=== PATIENT | female | born 1995 | race Caucasian/White ===

== ENCOUNTER 2018-01-16 07:39 | Day surgery (SDC) | payer SELFPAY ==
[~2018-01-16] VITALS: Ht 167.6 cm; Wt 71.8 kg
[2018-01-16 08:22] VITALS: BP 135/70; PULSE 122; TEMP 98.1
[2018-01-16] MEDS ORDERED: [UNRECOGNIZED DRUG - OTHER] PO (08:28)
[2018-01-16 10:30] VITALS: BP 110/66; PULSE 99; TEMP 98.1
[2018-01-16] MEDS ORDERED: NORCO 325 MG-51 TAB PO (10:42)
[2018-01-16 10:45] VITALS: BP 113/72; PULSE 97; TEMP 99.2
[2018-01-16 11:00] VITALS: BP 113/72; PULSE 91
[2018-01-16 11:15] VITALS: BP 107/56; PULSE 89
== END 2018-01-16 13:05 | disposition home or self-care (01) ==
LOC: SDCO 07:39
DX: K80.10 Calculus of gallbladder with chronic cholecystitis without obstruction (principal)
CPT/HCPCS: J0690; J1100; J1885; J2405; J2704; J3010; J7120; Q9967

== ENCOUNTER 2018-05-17 17:24 | Emergency (ER) | payer MEDICAID ==
[~2018-05-17 17:24] MED LIST: NORCO 325 MG-51 TAB PO; [UNRECOGNIZED DRUG - OTHER] PO
[2018-05-17 17:29] VITALS: TEMP 97.6
[2018-05-17 18:20] LABS: BASO # 0.1 (0.0-0.2); BASO % 0.3 % (0.0-2.0); EOS # 0.1 (0.0-0.7); EOS % 0.3 % (0-4.0); GRAN # 13.9 (1.4-6.5); GRAN % 80.3 % (42.2-75.2); HEMATOCRIT 37.2 % (35.0-45.0); HEMOGLOBIN 12.6 g/dl (12.0-15.0); LYMPH # 2.5 (1.2-3.4); LYMPH % 14.5 % (20.0-51.0); MEAN CELL VOLUME 87 fl (80.0-95.0); MEAN CORPUSCULAR HEMOGLOBIN 29 pg (26.0-32.0); MEAN CORPUSCULAR HGB CONC 34 g/dl (33.0-37.0); MEAN PLATELET VOLUME 9.8 fl (7.4-10.4); MONO # 0.7 (0.1-0.6); MONO % 4.1 % (1.7-9.3); PLATELET COUNT 343 K/mm3 (130-400); REDCELL DISTRIBUTION WIDTH-CV 12.4 % (11.5-14.5)
[2018-05-17 18:34] LABS: BILIRUBIN,TOTAL 0.6 mg/dL (0.0-1.0); CALCIUM 9.4 mg/dL (8.4-10.2); CREATININE, serum 0.54 (0.52-1.25); TOTAL PROTEIN 8.5 gm/dL (6.4-8.2)
[2018-05-17 18:53] LABS: COLLECTION METHOD CLEAN CATCH
[2018-05-17 19:05] LABS: POTASSIUM 3.6 mmol/L (3.4-5.0)
[2018-05-17 19:08] LABS: PH 5 (5-8); SQUAMOUS EPITHELIAL None Seen /hpf; URINE APPEARANCE Turbid; URINE BACTERIA None Seen /hpf; URINE BILIRUBIN Negative (NEGATIVE); URINE BLOOD 3+ (NEGATIVE); URINE COLOR Amber; URINE GLUCOSE 1+ (NEGATIVE); URINE KETONE 1+ (NEGATIVE); URINE LEUKOCYTE ESTERASE Negative (NEGATIVE); URINE NITRATE Negative (NEGATIVE); URINE PROTEIN(semi-quant) 2+ (NEGATIVE); URINE RBC >50 /hpf; URINE UROBILINOGEN Negative (NEGATIVE)
[2018-05-17 23:00] VITALS: BP 116/74; PULSE 118
[2018-05-17] MEDS ORDERED: NORCO 325 MG-51 TAB PO (23:25)
[2018-05-17] MEDS ORDERED: ZOFRAN ODT4 MG PO (23:25)
== END 2018-05-18 00:10 | disposition home or self-care (01) ==
LOC: COL.ER 17:24
PROVIDERS: Physician Assistant
DX: O03.9 Complete or unspecified spontaneous abortion without complication (principal)
CPT/HCPCS: J1885; J2405; J7030